=== PATIENT | female | born 1985 | race African-American/Black ===

== ENCOUNTER 2021-11-03 09:00 | Outpatient (CLI) | payer BC ==
[2021-11-03] MEDS ORDERED: Iopamidol-370 76% 500 ML 1 ML ONE (12:00)
== END 2021-11-03 09:01 | disposition home or self-care (01) ==
LOC: BICCT 09:00
PROVIDERS: ATTEND Physician Assistant
DX: Z48.816 Encounter for surgical aftercare following surgery on the genitourinary system (principal); Z90.710 Acquired absence of both cervix and uterus
CPT/HCPCS: 74177